=== PATIENT | male | born 1995 | race African-American/Black ===

== ENCOUNTER 2019-04-18 18:02 | Emergency (ER) | payer OTHER, SELFPAY ==
[2019-04-18] MEDS ORDERED: LIDOCAINE 2% MPF 5 ML VIAL ONE (18:31)
[2019-04-18] MEDS ORDERED: SMZ./TMP. 800/160 MG TABLET ONE (18:32)
[2019-04-18] MEDS ORDERED: BUPIVACAINE 0.25% PF 10 ML VIAL ONE (18:33)
--- NOTE | 2019-04-18 19:54 | EDPHYS ---
Physician Documentation [facility] Name: Kan Berkowitz Age: 23 yrs Sex: Male : 1995 Arrival Date: 04/18/2019 Time: 18:05 Bed 8 Private MD: ED Physician Everett Pulido HPI: 04/18 18:50 This 23 yrs old Black Male presents to ER via Ambulatory with complaints of Infected kb finger. 18:50 the patient presents with a swollen area of the dorsal aspect of distal phalanx of left kb ring finger. Description: erythematous, swollen, warm. Onset: The symptoms/episode began/occurred 1 week(s) ago. Possible cause(s): unknown. Associated signs and symptoms: Pertinent positives: drainage, erythema, swelling. Modifying factors: the symptoms are alleviated by nothing, the symptoms are aggravated by pressure, squeezing the lesion and expressing the contents, touching. Severity of symptoms: At their worst the symptoms were moderate, in the emergency department the symptoms are unchanged. The patient has not experienced similar symptoms in the past. The patient has not recently seen a physician. Historical: - Allergies: 18:19 No Known Allergies; hb - Home Meds: 18:19 None [Active]; hb - PMHx: 18:19 None; hb - PSHx: 18:19 Wrist - Right; hb - Immunization history:: Adult Immunizations up to date. - Social history:: Smoking status: Patient uses tobacco products, smokes one-half pack cigarettes per day. - Ebola Screening: : No symptoms or risks identified at this time. ROS: 18:49 Constitutional: Negative for fever, chills, and weight loss, Cardiovascular: Negative kb for chest pain, palpitations, and edema, Respiratory: Negative for shortness of breath, cough, wheezing, and pleuritic chest pain, Abdomen/GI: Negative for abdominal pain, nausea, vomiting, diarrhea, and constipation, MS/Extremity: Negative for injury and deformity, Neuro: Negative for headache, weakness, numbness, tingling, and seizure. 18:49 Skin: Positive for abscess, erythema, swelling, of the dorsal aspect of distal phalanx of left ring finger. Exam: 18:49 Constitutional: This is a well developed, well nourished patient who is awake, alert, kb and in no acute distress. Head/Face: Normocephalic, atraumatic. Neck: Trachea midline, no thyromegaly or masses palpated, and no cervical lymphadenopathy. Supple, full range of motion without nuchal rigidity, or vertebral point tenderness. No Meningismus. Chest/axilla: Normal chest wall appearance and motion. Nontender with no deformity. No lesions are appreciated. Cardiovascular: Regular rate and rhythm with a normal S1 and S2. No gallops, murmurs, or rubs. Normal PMI, no JVD. No pulse deficits. Respiratory: Lungs have equal breath sounds bilaterally, clear to auscultation and percussion. No rales, rhonchi or wheezes noted. No increased work of breathing, no retractions or nasal flaring. Abdomen/GI: Soft, non-tender, with normal bowel sounds. No distension or tympany. No guarding or rebound. No evidence of tenderness throughout. MS/ Extremity: Pulses equal, no cyanosis. Neurovascular intact. Full, normal range of motion. Neuro: Awake and alert, GCS 15, oriented to person, place, time, and situation. Cranial nerves II-XII grossly intact. Motor strength 5/5 in all extremities. Sensory grossly intact. Cerebellar exam normal. Normal gait. 18:49 Skin: abscess, that is small, of the dorsal aspect of distal phalanx of left ring finger, with fluctuance. Vital Signs: 18:19 BP 146 / 82; Pulse 77; Resp 16; Temp 98.5; Pulse Ox 100% on R/A; Weight 149.69 kg; hb Height 6 ft. (182.88 cm); Pain 8/10; 18:19 Body Mass Index 44.76 (149.69 kg, 182.88 cm) hb Procedures: 18:46 Nerve block: (digital) of dorsal aspect of proximal phalanx of left ring finger kb Medication: Lidocaine 1% without epinephrine Marcaine 0.5%, Amount: 6 mls were injected, Effect: the patient has resolution of the pain, Set up for procedure. Performed by Mery MCNAMARA Patient tolerated well. MDM: 18:24 Patient medically screened. kb 18:46 Data reviewed: vital signs, nurses notes. Data interpreted: Pulse oximetry: on room air kb is 100 %. Interpretation: normal. 19:52 Counseling: I had a detailed discussion with the patient and/or guardian regarding: the kb historical points, exam findings, and any diagnostic results supporting the discharge/admit diagnosis, the need for outpatient follow up, a family practitioner, to return to the emergency department if symptoms worsen or persist or if there are any questions or concerns that arise at home. Administered Medications: 18:34 Drug: Bactrim (160 mg-800 mg (DS) 1 tablet Route: PO; jl7 18:46 Follow up: Response: No adverse reaction jl7 18:45 Drug: Marcaine (0.5 %) 1 vials {Note: administered by TERRI ordonez.} Volume: 10 ml; jl7 Route: Infiltration; 18:46 Follow up: Response: No adverse reaction jl7 18:46 Drug: Lidocaine (1 %) 1 vials {Note: administered by TERRI Ordonez.} Volume: 5 ml; Route: jl7 Infiltration; 18:47 Follow up: Response: No adverse reaction jl7 Disposition: 04/19 06:37 Co-signature as Attending Physician, Everett Pulido MD I agree with the assessment and real plan of care. Disposition: 04/18/19 19:53 Discharged to Home. Impression: Cutaneous abscess of left hand - paronychia, left ring finger. - Condition is Stable. - Discharge Instructions: Paronychia, [id number]. - Prescriptions for Bactrim DS 800- 160 mg Oral Tablet - take 1 tablet by ORAL route every 12 hours for 10 days; 20 tablet. - Medication Reconciliation Form, Thank You Letter, Antibiotic Education, Prescription Opioid Use, Work release form form. - Follow up: Emergency Department; When: As needed; Reason: Worsening of condition. Follow up: Private Physician; When: 2 - 3 days; Reason: Recheck today's complaints, Continuance of care, Re-evaluation by your physician. Signatures: Mery Sanchez, ELECTRONIC SECURITY TECHNICIAN-C ELECTRONIC SECURITY TECHNICIAN-Everett Morse MD MD cha Pena, Laura RN RN lp1 Eloise Fam, El Laughlin RN, RN RN jl7 Corrections: (The following items were deleted from the chart) 04/18 18:49 18:46 Nerve block: (digital) of dorsal aspect of proximal phalanx of left middle finger kb Medication: Lidocaine 1% without epinephrine Marcaine 0.5%, Amount: 6 mls were injected, Effect: the patient has resolution of the pain, Set up for procedure. Performed by Mery MCNAMARA Patient tolerated well. kb 20:10 19:53 04/18/2019 19:53 Discharged to Home. Impression: Cutaneous abscess of left hand - lp1 paronychia, left ring finger. Condition is Stable. Forms are Medication Reconciliation Form, Thank You Letter, Antibiotic Education, Prescription Opioid Use. Follow up: Emergency Department; When: As needed; Reason: Worsening of condition. Follow up: Private Physician; When: 2 - 3 days; Reason: Recheck today's complaints, Continuance of care, Re-evaluation by your physician. kb
--- NOTE | 2019-04-18 19:54 | ER ---
Nurse's Notes [facility] Name: Kan Berkowitz Age: 23 yrs Sex: Male : 1995 Arrival Date: 04/18/2019 Time: 18:05 Bed 8 Private MD: Diagnosis: Cutaneous abscess of left hand-paronychia, left ring finger Presentation: 04/18 18:18 Presenting complaint: Infected left ring finger cuticle x 1 week. Transition of care: hb patient was not received from another setting of care. Onset of symptoms was April 12, 2019. Risk Assessment: Do you want to hurt yourself or someone else? Patient reports no desire to harm self or others. Initial Sepsis Screen: Does the patient meet any 2 criteria? No. Patient's initial sepsis screen is negative. Does the patient have a suspected source of infection? No. Patient's initial sepsis screen is negative. Care prior to arrival: None. 18:18 Method Of Arrival: Ambulatory hb 18:18 Acuity: CHRISTOPHER 4 hb Historical: - Allergies: 18:19 No Known Allergies; hb - Home Meds: 18:19 None [Active]; hb - PMHx: 18:19 None; hb - PSHx: 18:19 Wrist - Right; hb - Immunization history:: Adult Immunizations up to date. - Social history:: Smoking status: Patient uses tobacco products, smokes one-half pack cigarettes per day. - Ebola Screening: : No symptoms or risks identified at this time. Screenin:47 Abuse screen: Denies threats or abuse. Denies injuries from another. Nutritional jl7 screening: No deficits noted. Tuberculosis screening: No symptoms or risk factors identified. Fall Risk None identified. Assessment: 18:47 General: Appears in no apparent distress. uncomfortable, Behavior is cooperative, jl7 anxious. Pain: Complains of pain in dorsal aspect of distal phalanx of left ring finger Pain does not radiate. Pain currently is 6 out of 10 on a pain scale. Neuro: Level of Consciousness is awake, alert, obeys commands, Oriented to person, place, time, situation. Cardiovascular: Patient's skin is warm and dry. Respiratory: Airway is patent Respiratory effort is even, unlabored, Respiratory pattern is regular, symmetrical. Derm: Skin is pink, warm \\T\\ dry. Musculoskeletal: Reports pain in dorsal aspect of distal phalanx of left ring finger. 19:18 Reassessment: Patient states "My finger still hurts, I don't think the medicine is lp1 helping yet"; Bruising, swelling noted to distal left ring finger; Provider notified of patient with continued pain. Vital Signs: 18:19 BP 146 / 82; Pulse 77; Resp 16; Temp 98.5; Pulse Ox 100% on R/A; Weight 149.69 kg; hb Height 6 ft. (182.88 cm); Pain 8/10; 18:19 Body Mass Index 44.76 (149.69 kg, 182.88 cm) hb ED Course: 18:05 Patient arrived in ED. mr 18:18 Triage completed. hb 18:20 Arm band placed on. hb 18:23 [facility]C [facility] kb 18:23 Everett Pulido MD is Attending Physician. kb 18:27 El Schmitt RN is Primary Nurse. jl7 18:47 Patient has correct armband on for positive identification. Placed in gown. Bed in low jl7 position. Call light in reach. Side rails up X 1. 19:20 Patient did not have IV access during this emergency room visit. lp1 20:09 No provider procedures requiring assistance completed. lp1 Administered Medications: 18:34 Drug: Bactrim (160 mg-800 mg (DS) 1 tablet Route: PO; jl7 18:46 Follow up: Response: No adverse reaction jl7 18:45 Drug: Marcaine (0.5 %) 1 vials {Note: administered by TERRI ordonez.} Volume: 10 ml; jl7 Route: Infiltration; 18:46 Follow up: Response: No adverse reaction jl7 18:46 Drug: Lidocaine (1 %) 1 vials {Note: administered by TERRI Ordonez.} Volume: 5 ml; Route: jl7 Infiltration; 18:47 Follow up: Response: No adverse reaction jl7 Outcome: 19:53 Discharge ordered by . kb 20:09 Discharged to home ambulatory. lp1 20:09 Condition: good 20:09 Discharge instructions given to patient, Instructed on discharge instructions, follow up and referral plans. medication usage, Demonstrated understanding of instructions, follow-up care, medications, Prescriptions given X 1. 20:10 Patient left the ED. lp1 Signatures: Mery Sanchez FNP-C LEATHER STAMPER-Joelle Mcclellan mr Bond, Naomi, RN RN lp1 Eloise Fam, RN RN hb El Schmitt RN RN jl7
[2019-04-18 20:33] VITALS: BP 114/72; TEMP 99.6; O2SAT 98
== END 2019-04-18 20:10 | disposition home or self-care (01) ==
LOC: ER 18:02
DX: L02.512 Cutaneous abscess of left hand (principal)
CPT/HCPCS: 64450; 99283

== ENCOUNTER 2021-03-21 18:03 | Emergency (ER) | payer SELFPAY ==
--- NOTE | 2021-03-21 19:35 | EDPHYS ---
Physician Documentation [facility] Name: Kan Berkowitz Age: 25 yrs Sex: Male : 1995 Arrival Date: 03/21/2021 Time: 18:04 Bed 11 Private MD: ED Physician James Zimmerman HPI: 03/21 19:26 This 25 yrs old Black Male presents to ER via Ambulatory with complaints of Ear Pain. jmm 19:26 The patient presents with pain. Onset: The symptoms/episode began/occurred gradually, 1 jmm week(s) ago. Modifying factors: The symptoms are alleviated by nothing, the symptoms are aggravated by nothing. Associated signs and symptoms: Pertinent negatives: fever. Is a 25-year-old male no chronic medical conditions presents emerged part with complaints of earache which has been ongoing for approximately 1 week. Patient states [place] Denies vomiting, cough. Historical: - Allergies: 18:46 No Known Allergies; kg - Home Meds: 18:46 None [Active]; kg - PMHx: 18:46 None; kg - PSHx: 18:46 Right wrist sx; kg - Immunization history:: Adult Immunizations not up to date, Client reports having NOT received the Covid vaccine. - Social history:: Smoking status: Patient reports the use of cigarette tobacco products, smokes one pack cigarettes per day. ROS: 19:26 Constitutional: Negative for fever, chills, and weight loss. jmm 19:26 ENT: Positive for ear pain. 19:26 All other systems are negative. Exam: 19:26 Constitutional: This is a well developed, well nourished patient who is awake, alert, jmm and in no acute distress. Head/Face: atraumatic. Eyes: EOMI, no conjunctival erythema appreciated 19:26 Neck: Trachea midline, Supple Chest/axilla: Normal chest wall appearance and motion. Cardiovascular: Regular rate and rhythm. No edema appreciated Respiratory: Normal respirations, no respiratory distress appreciated Abdomen/GI: Non distended, soft Back: Normal ROM Skin: General appearance color normal MS/ Extremity: Moves all extremities, no obvious deformities appreciated, no edema noted to the lower extremities Neuro: Awake and alert, normal gait Psych: Behavior is normal, Mood is normal, Patient is cooperative and pleasant 19:26 ENT: TM's: erythema, that is moderate, on the left. Vital Signs: 18:44 BP 148 / 94; Pulse 72; Resp 20; Temp 99.3(O); Pulse Ox 99% on R/A; Weight 136.08 kg kg (R); Height 6 ft. 0 in. (182.88 cm); Pain 7/10; 18:44 Body Mass Index 40.69 (136.08 kg, 182.88 cm) kg MDM: 19:25 Patient medically screened. [facility] 19:27 Data reviewed: vital signs, nurses notes. Counseling: I had a detailed discussion with [facility] the patient and/or guardian regarding: the historical points, exam findings, and any diagnostic results supporting the discharge/admit diagnosis, the need for outpatient follow up, to return to the emergency department if symptoms worsen or persist or if there are any questions or concerns that arise at home. ED course: . Administered Medications: 19:33 Drug: Ketorolac 30 mg Route: IM; Site: right deltoid; b 19:46 Follow up: Response: No adverse reaction z Disposition Summary: 03/21/21 19:34 Discharge Ordered Location: Home [facility] Condition: Stable [facility] Diagnosis - Acute serous otitis media, left ear [facility] Followup: [facility] - With: Private Physician - When: 2 - 3 days - Reason: Recheck today's complaints, Continuance of care, Re-evaluation by your physician Discharge Instructions: - Discharge Summary Sheet [facility] - Otitis Media, Adult [facility] Forms: - Medication Reconciliation Form [facility] - Thank You Letter [facility] - Antibiotic Education [facility] - Prescription Opioid Use [facility] Prescriptions: - Augmentin 875-125 mg Oral Tablet - take 1 tablet by ORAL route every 12 hours for 10 days; 20 tablet; Refills: 0, [facility] Product Selection Permitted Addendum: 03/23/2021 09:07 Co-signature as Attending Physician, James Zimmerman MD I agree with the assessment and [facility] plan of care. Signatures: James Zimmerman MD MD kdr Mickail, Joel, PA PA jmm Brown, Zipporah, RN RN zb Graham, Kristen, RN RN kg Corrections: (The following items were deleted from the chart) 03/21 18:47 18:46 PSHx: None; kg kg
--- NOTE | 2021-03-21 19:35 | ER ---
Nurse's Notes [facility] Name: Kan Berkowitz Age: 25 yrs Sex: Male : 1995 Arrival Date: 03/21/2021 Time: 18:04 Bed 11 Private MD: Diagnosis: Acute serous otitis media, left ear Presentation: 03/21 18:44 Chief complaint: Patient states: Left ear pain and swelling behind ear/ jaw, difficulty kg swallowing x 3 days. Coronavirus screen: Client denies travel out of the [place] in the last 14 days. Client indicates they have traveled out of the [place] in the last 14 days. At this time, unable to obtain information related to travel outside the [place] At this time, the client does not indicate any symptoms associated with coronavirus-19. Ebola Screen: Patient negative for fever greater than or equal to 101.5 degrees Fahrenheit, and additional compatible Ebola Virus Disease symptoms Patient denies exposure to infectious person. Patient denies travel to an Ebola-affected area in the 21 days before illness onset. Initial Sepsis Screen: Does the patient meet any 2 criteria? No. Patient's initial sepsis screen is negative. Does the patient have a suspected source of infection? No. Patient's initial sepsis screen is negative. Risk Assessment: Do you want to hurt yourself or someone else? Patient reports no desire to harm self or others. Onset of symptoms was March 18, 2021. 18:44 Method Of Arrival: Ambulatory kg 18:44 Acuity: CHRISTOPHER 4 kg Triage Assessment: 18:46 General: Appears in no apparent distress. Behavior is calm, cooperative, appropriate kg for age, quiet. Pain: Complains of pain in Left ear, left jaw Pain radiates to Left jaw, throat Pain currently is 7 out of 10 on a pain scale. at worst was 10 out of 10 on a pain scale. level that patient reports is acceptable is 3 out of 10 on a pain scale. Quality of pain is described as throbbing. EENT: Reports decreased hearing in left ear difficulty swallowing since 03/19 pain in left ear and left jaw when swallowing Pain is 7 out of 10 on a pain scale. Historical: - Allergies: 18:46 No Known Allergies; kg - Home Meds: 18:46 None [Active]; kg - PMHx: 18:46 None; kg - PSHx: 18:46 Right wrist sx; kg - Immunization history:: Adult Immunizations not up to date, Client reports having NOT received the Covid vaccine. - Social history:: Smoking status: Patient reports the use of cigarette tobacco products, smokes one pack cigarettes per day. Screenin:03 Abuse screen: Denies threats or abuse. Denies injuries from another. Nutritional hb screening: No deficits noted. Tuberculosis screening: No symptoms or risk factors identified. Fall Risk None identified. Assessment: 19:03 General: Appears in no apparent distress. Behavior is calm, cooperative. Pain: Pain hb currently is 7 out of 10 on a pain scale. Neuro: Level of Consciousness is awake, alert, obeys commands, Oriented to person, place, time, situation. Cardiovascular: Patient's skin is warm and dry. Respiratory: Respiratory effort is even, unlabored, Respiratory pattern is regular, symmetrical. GI: No signs and/or symptoms were reported involving the gastrointestinal system. : No signs and/or symptoms were reported regarding the genitourinary system. EENT: Reports left ear pain. Derm: Skin is pink, warm \T\ dry. Musculoskeletal: No signs and/or symptoms reported regarding the musculoskeletal system. 19:35 Reassessment: Patient appears in no apparent distress at this time. Patient and/or zb family updated on plan of care and expected duration. Pain level reassessed. Patient is alert, oriented x 3, equal unlabored respirations, skin warm/dry/pink. d/c pending completion of IM injection wait time. Vital Signs: 18:44 BP 148 / 94; Pulse 72; Resp 20; Temp 99.3(O); Pulse Ox 99% on R/A; Weight 136.08 kg kg (R); Height 6 ft. 0 in. (182.88 cm); Pain 7/10; 18:44 Body Mass Index 40.69 (136.08 kg, 182.88 cm) kg ED Course: 18:04 Patient arrived in ED. am2 18:46 Triage completed. kg 18:46 Arm band placed on left wrist. kg 18:56 Yonathan Calderon PA is PHCP. [facility] 18:56 James Zimmerman MD is Attending Physician. [facility] 19:03 Patient has correct armband on for positive identification. Call light in reach. hb 19:26 Teresa Booker, RN is Primary Nurse. zb 19:39 No provider procedures requiring assistance completed. Patient did not have IV access zb during this emergency room visit. Administered Medications: 19:33 Drug: Ketorolac 30 mg Route: IM; Site: right deltoid; zb 19:46 Follow up: Response: No adverse reaction zb Outcome: 19:34 Discharge ordered by . kd 19:39 Discharged to home ambulatory. zb 19:39 Condition: stable 19:39 Discharge instructions given to patient, Instructed on discharge instructions, follow up and referral plans. medication usage, Demonstrated understanding of instructions, follow-up care, medications, Prescriptions given X 1. 19:48 Patient left the ED. zb Signatures: Yonathan Calderon PA PA jmm Baxter, Heather, RN RN Yuen Nicole 2 Teresa Booker RN RN zb Graham, Kristen, RN RN kg Corrections: (The following items were deleted from the chart) 18:47 18:46 PSHx: None; kg kg
[2021-03-21] MEDS ORDERED: KETOROLAC 30 MG/ML INJ ONE (19:53)
[2021-03-21 20:09] VITALS: BP 148/94; TEMP 99.3; O2SAT 99
== END 2021-03-21 19:48 | disposition home or self-care (01) ==
LOC: ER 18:03
DX: H65.02 Acute serous otitis media, left ear (principal); F17.210 Nicotine dependence, cigarettes, uncomplicated
CPT/HCPCS: 96372; 99283

== ENCOUNTER 2022-04-12 13:54 | Emergency (ER) | payer SELFPAY ==
[2022-04-12] MEDS ORDERED: PROMETHAZINE INJ 25 MG/ML AMP ONE (14:17)
[2022-04-12] MEDS ORDERED: NA CHLORIDE 0.9% 1,000 ML ONE (14:18)
[2022-04-12] MEDS ORDERED: HYDROMORPHONE HCL 0.5 MG/0.5 ML INJ ONE (14:18)
[2022-04-12] MEDS ORDERED: KETOROLAC 30 MG/ML INJ ONE (14:18)
[2022-04-12] MEDS ORDERED: MAGNESIUM SULFATE 1 gm IVPB 1 GM/100 ML BAG IV ONE (14:18)
--- NOTE | 2022-04-12 15:15 | RAD REPORT ---
EXAM DESCRIPTION: CT - Stone Protocol - 04/12/2022 3:01 pm CLINICAL HISTORY: Flank pain. severe sudden pain COMPARISON: No comparisons TECHNIQUE: Axial images were obtained without oral or IV contrast. Lack of contrast limits solid org an and vascular assessment. The [id number] spans the entirety of the system partially obscuring uppermost abdomen and lung bases. Coronal reformatted images were obtained and reviewed. All CT scans are performed using dose optimization technique as appropriate and may include automated exposure control or mA/KV adjustment according to patient size. FINDINGS: The lower lung martinez are clear. Imaged portions of the liver and spleen show no suspicious findings on non-contrast imaging. The panc reas and adrenal glands are normal. No pathologic lymphadenopathy in the abdomen or pelvis. 3 mm stone right UVJ is present resulting in mild right hydronephrosis and hydroureter. No bowel obstruction, free air, free fluid or abscess. Normal appendix noted. No significant bony abnormality. IMPRESSION: 3 mm stone right UVJ resulting in mild right hydronephrosis and hydroureter.
[2022-04-12 15:28] LABS: Urine Blood 2+ (Negative); Urine Glucose Negative (Negative); Urine Protein 2+ (Negative); Urine Specific Gravity >=1.030 (1.005-1.030); Urine pH 5.5 (5.0-7.0)
--- NOTE | 2022-04-12 15:29 | EDPHYS ---
Physician Documentation [facility] Name: Kan Berkowitz Age: 26 yrs Sex: Male : 1995 Arrival Date: 04/12/2022 Time: 13:55 Bed 14 Private MD: ED Physician Everett Pulido HPI: 04/12 14:09 This 26 yrs old Black Male presents to ER via Ambulatory with complaints of Flank Pain. snw 14:09 The patient complains of pain in the right lower quadrant. The pain does not radiate. snw Onset: The symptoms/episode began/occurred suddenly. Modifying factors: The symptoms are alleviated by nothing. the symptoms are aggravated by nothing. Associated signs and symptoms: Pertinent positives: severe pain. Severity of pain: At its worst the pain was severe incapacitating. The patient has not experienced similar symptoms in the past. The patient has not recently seen a physician. Historical: - Allergies: 14:55 No Known Allergies; ph - PSHx: 14:55 Right wrist sx; ph - Immunization history:: Adult Immunizations unknown. - Social history:: Smoking status: Patient reports the use of cigarette tobacco products, smokes one-half pack cigarettes per day. ROS: 14:09 Constitutional: Negative for fever, chills, and weight loss, Eyes: Negative for injury, snw pain, redness, and discharge, ENT: Negative for injury, pain, and discharge, Neck: Negative for injury, pain, and swelling, Cardiovascular: Negative for chest pain, palpitations, and edema, Respiratory: Negative for shortness of breath, cough, wheezing, and pleuritic chest pain, Back: Negative for injury and pain, : Negative for injury, bleeding, discharge, and swelling, MS/Extremity: Negative for injury and deformity, Skin: Negative for injury, rash, and discoloration, Neuro: Negative for headache, weakness, numbness, tingling, and seizure, Psych: Negative for depression, anxiety, suicide ideation, homicidal ideation, and hallucinations. 14:09 Abdomen/GI: Positive for abdominal pain, of the right lower quadrant. Exam: 14:08 Head/Face: Normocephalic, atraumatic. Eyes: Pupils equal round and reactive to light, snw extra-ocular motions intact. Lids and lashes normal. Conjunctiva and sclera are non-icteric and not injected. Cornea within normal limits. Periorbital areas with no swelling, redness, or edema. ENT: Nares patent. No nasal discharge, no septal abnormalities noted. Tympanic membranes are normal and external auditory canals are clear. Oropharynx with no redness, swelling, or masses, exudates, or evidence of obstruction, uvula midline. Mucous membranes moist. Neck: Trachea midline, no thyromegaly or masses palpated, and no cervical lymphadenopathy. Supple, full range of motion without nuchal rigidity, or vertebral point tenderness. No Meningismus. Chest/axilla: Normal chest wall appearance and motion. Nontender with no deformity. No lesions are appreciated. Cardiovascular: Regular rate and rhythm with a normal S1 and S2. No gallops, murmurs, or rubs. Normal PMI, no JVD. No pulse deficits. Respiratory: Lungs have equal breath sounds bilaterally, clear to auscultation and percussion. No rales, rhonchi or wheezes noted. No increased work of breathing, no retractions or nasal flaring. Back: No spinal tenderness. No costovertebral tenderness. Full range of motion. Skin: Warm, dry with normal turgor. Normal color with no rashes, no lesions, and no evidence of cellulitis. MS/ Extremity: Pulses equal, no cyanosis. Neurovascular intact. Full, normal range of motion. Neuro: Awake and alert, GCS 15, oriented to person, place, time, and situation. Cranial nerves II-XII grossly intact. Motor strength 5/5 in all extremities. Sensory grossly intact. Cerebellar exam normal. Normal gait. Psych: Awake, alert, with orientation to person, place and time. Behavior, mood, and affect are within normal limits. 14:08 Constitutional: The patient appears alert, anxious, restless, uncomfortable. 14:08 Constitutional: The patient appears diaphoretic. 14:08 Abdomen/GI: Inspection: abdomen appears normal, Bowel sounds: normal, Palpation: severe abdominal tenderness, in the right lower quadrant. Vital Signs: 14:02 Pulse 77; Resp 24; Pulse Ox 100% on R/A; Weight 145.15 kg; Height 6 ft. 0 in. (182.88 ph cm); Pain 10/10; 14:05 BP 150 / 95; hb 15:29 BP 132 / 87; Pulse 68; Resp 18; Temp 97.4(TE); Pulse Ox 99% on R/A; ph 14:02 Body Mass Index 43.40 (145.15 kg, 182.88 cm) ph MDM: 14:07 Patient medically screened. real 16:32 Data reviewed: vital signs, nurses notes. Data interpreted: Pulse oximetry: on room air snw is 99 %. Interpretation: normal. Counseling: I had a detailed discussion with the patient and/or guardian regarding: the historical points, exam findings, and any diagnostic results supporting the discharge/admit diagnosis, the presence of at least one elevated blood pressure reading (>120/80) during this emergency department visit, the need for outpatient follow up, for definitive care. Response to treatment: the patient's symptoms have markedly improved after treatment. Special discussion: Based on the patient's Hx, exam, and Dx evaluation, there is no indication for emergent surgery or inpatient Tx. It is understood by the patient/guardian that if the Sx's persist or worsen they need to return immediately for re-evaluation. Based on the history and exam findings, there is no indication for further emergent testing or inpatient evaluation. I discussed with the patient/guardian the need to see the primary care provider for further evaluation of the symptoms. 04/12 14:05 Order name: Urine Culture [facility] 04/12 14:05 Order name: Urine Microscopic Only; Complete Time: 16:09 snw 04/12 14:08 Order name: Stone Protocol CT; Complete Time: 15:20 snw 04/12 15:29 Order name: Urine Dipstick-Ancillary; Complete Time: 15:30 EDMS 04/12 14:05 Order name: Urine Dipstick-Ancillary (obtain specimen); Complete Time: 15:32 snw 04/12 15:22 Order name: VS; Complete Time: 15:29 snw Administered Medications: 14:15 Drug: NS 0.9% 1000 ml Route: IV; Rate: 1 bolus; Site: right antecubital; ph 16:45 Follow up: Response: No adverse reaction; IV Status: Completed infusion; IV Intake: ph 1000ml 14:15 Drug: Dilaudid (HYDROmorphone) 0.5 mg Route: IVP; Site: right antecubital; ph 15:30 Follow up: Response: No adverse reaction; Pain is decreased; RASS: Alert and Calm (0) ph 14:16 Drug: Ketorolac 30 mg Route: IVP; Site: right antecubital; ph 15:30 Follow up: Response: No adverse reaction ph 14:18 Drug: Magnesium Sulfate 1 grams Route: IVPB; Infused Over: 1 hrs; Site: right ph antecubital; 15:30 Follow up: Response: No adverse reaction; IV Status: Completed infusion ph 15:31 Not Given (Other Intervention Used): Phenergan (promethazine) 25 mg IM once ph 15:55 Drug: Flomax (tamsulosin) 0.4 mg Route: PO; ph 16:44 Follow up: Response: No adverse reaction ph Disposition Summary: 04/12/22 15:28 Discharge Ordered Location: Home snw Condition: Stable snw Diagnosis - Hydroureter snw - Hydronephrosis with renal and ureteral calculous obstruction snw Followup: snw - With: Emergency Department - When: As needed - Reason: Worsening of condition Followup: snw - With: Private Physician - When: 2 - 3 days - Reason: Recheck today's complaints, Continuance of care, Re-evaluation by your physician Discharge Instructions: - Discharge Summary Sheet snw - Kidney Stones snw - Hydronephrosis snw - Dietary Guidelines to Help Prevent Kidney Stones snw - Rehydration, Adult snw Forms: - Medication Reconciliation Form snw - Thank You Letter snw - Antibiotic Education snw - Prescription Opioid Use snw - Work release form snw Prescriptions: - magnesium oxide - take 400 milligram by ORAL route At bedtime; 30 tablet; Refills: 0, Product snw Selection Permitted - Diclofenac Sodium 75 mg Oral Tablet Sustained Release - take 1 tablet by ORAL route 2 times per day; 30 tablet; Refills: 0, Product snw Selection Permitted - promethazine 25 mg Oral Tablet - take 1 tablet by ORAL route every 6 hours As needed; 20 tablet; Refills: 0, snw Product Selection Permitted Signatures: Dispatcher [employer] Everett Quintana MD MD cha Waters, Shelly, CHIEF NURSING OFFICER-C CHIEF NURSING OFFICER-Latricew Louisa Covington, RN RN ph
--- NOTE | 2022-04-12 15:29 | ER ---
Nurse's Notes [facility] Name: Kan Berkowitz Age: 26 yrs Sex: Male : 1995 Arrival Date: 04/12/2022 Time: 13:55 Bed 14 Private MD: Diagnosis: Hydroureter;Hydronephrosis with renal and ureteral calculous obstruction Presentation: 04/12 14:02 Chief complaint: Patient states: R flank/abdominal pain that started today, pt noted to ph be diaphoretic, pacing. Coronavirus screen: Vaccine status: Patient reports being unvaccinated. Ebola Screen: No symptoms or risks identified at this time. 14:02 Method Of Arrival: Ambulatory ph 14:54 Initial Sepsis Screen: Does the patient meet any 2 criteria? No. Patient's initial ph sepsis screen is negative. Does the patient have a suspected source of infection? No. Patient's initial sepsis screen is negative. Risk Assessment: Do you want to hurt yourself or someone else? Patient reports no desire to harm self or others. Onset of symptoms was April 12, 2022. 14:54 Acuity: CHRISTOPHER 3 ph Triage Assessment: 14:05 General: Appears in no apparent distress. uncomfortable, Behavior is cooperative, ph restless. Pain: Complains of pain in right lower quadrant Quality of pain is described as radiating, sharp, Pain began this morning. Neuro: Yates Agitation-Sedation Scale (RASS): +1 Restless Level of Consciousness is awake, alert, obeys commands, Oriented to person, place, time, situation. Cardiovascular: Capillary refill < 3 seconds in bilateral fingers Patient's skin is warm and dry. Respiratory: Airway is patent Respiratory effort is even, unlabored. : Reports pain in right lower quadrant(s). Derm: Skin is clammy, diaphoretic, Skin is normal. Musculoskeletal: Circulation, motion, and sensation intact. Range of motion: intact in all extremities. Historical: - Allergies: 14:55 No Known Allergies; ph - PSHx: 14:55 Right wrist sx; ph - Immunization history:: Adult Immunizations unknown. - Social history:: Smoking status: Patient reports the use of cigarette tobacco products, smokes one-half pack cigarettes per day. Screenin:53 Abuse screen: Denies threats or abuse. Denies injuries from another. Nutritional ph screening: No deficits noted. Tuberculosis screening: No symptoms or risk factors identified. Fall Risk None identified. Assessment: 14:52 Reassessment: Pt states that pain has improved after IV medications. General: SEE ph TRIAGE ASSESSMENT. 15:29 Reassessment: Patient appears in no apparent distress at this time. Patient and/or ph family updated on plan of care and expected duration. Pain level reassessed. Patient is alert, oriented x 3, equal unlabored respirations, skin warm/dry/pink. 15:56 Reassessment: Patient appears in no apparent distress at this time. Patient and/or ph family updated on plan of care and expected duration. Pain level reassessed. Patient is alert, oriented x 3, equal unlabored respirations, skin warm/dry/pink. D/C pending completion of IV fluids Patient states feeling better. Vital Signs: 14:02 Pulse 77; Resp 24; Pulse Ox 100% on R/A; Weight 145.15 kg; Height 6 ft. 0 in. (182.88 ph cm); Pain 10/10; 14:05 BP 150 / 95; hb 15:29 BP 132 / 87; Pulse 68; Resp 18; Temp 97.4(TE); Pulse Ox 99% on R/A; ph 14:02 Body Mass Index 43.40 (145.15 kg, 182.88 cm) ph ED Course: 13:55 Patient arrived in ED. rg4 13:56 Argelia Bernstein FNP-C [facility]. snw 13:56 Everett Pulido MD is Attending Physician. snw 14:02 Louisa Covington, MATHEW is Primary Nurse. ph 14:10 Inserted saline lock: 22 gauge in right antecubital area, using aseptic technique. ph Blood collected. 14:55 Triage completed. ph 14:55 Arm band placed on Patient placed in an exam room. ph 14:55 Patient has correct armband on for positive identification. Bed in low position. Call ph light in reach. Side rails up X 1. Pulse ox on. NIBP on. 15:[address] In Process Unspecified. EDMS 15:29 No provider procedures requiring assistance completed. ph 16:45 IV discontinued, intact, bleeding controlled, No redness/swelling at site. Pressure ph dressing applied. Administered Medications: 14:15 Drug: NS 0.9% 1000 ml Route: IV; Rate: 1 bolus; Site: right antecubital; ph 16:45 Follow up: Response: No adverse reaction; IV Status: Completed infusion; IV Intake: ph 1000ml 14:15 Drug: Dilaudid (HYDROmorphone) 0.5 mg Route: IVP; Site: right antecubital; ph 15:30 Follow up: Response: No adverse reaction; Pain is decreased; RASS: Alert and Calm (0) ph 14:16 Drug: Ketorolac 30 mg Route: IVP; Site: right antecubital; ph 15:30 Follow up: Response: No adverse reaction ph 14:18 Drug: Magnesium Sulfate 1 grams Route: IVPB; Infused Over: 1 hrs; Site: right ph antecubital; 15:30 Follow up: Response: No adverse reaction; IV Status: Completed infusion ph 15:31 Not Given (Other Intervention Used): Phenergan (promethazine) 25 mg IM once ph 15:55 Drug: Flomax (tamsulosin) 0.4 mg Route: PO; ph 16:44 Follow up: Response: No adverse reaction ph Medication: 14:55 VIS not applicable for this client. ph Intake: 16:45 IV: 1000ml; Total: 1000ml. ph Outcome: 15:28 Discharge ordered by . snw 16:45 Discharged to home ambulatory, with significant other. ph 16:45 Condition: good 16:45 Discharge instructions given to patient, Instructed on discharge instructions, follow up and referral plans. medication usage, Demonstrated understanding of instructions, follow-up care, medications, Prescriptions given X 3. 16:45 Patient left the ED. ph Signatures: Dispatcher [employer] EDMS Argelia Bernstein, ALEC-Siobhan BOWSTRING MAKER-Latricew Louisa Covington, RN RN Eloise Fam, MATHEW RN Ximena Charles rg4
[2022-04-12] MEDS ORDERED: TAMSULOSIN 0.4 MG SR CAP ONE (15:50)
[2022-04-12 15:52] LABS: Urine Mucus 4+ /HPF (None Seen); Urine RBC >50 /HPF (None Seen)
[2022-04-12 17:28] VITALS: BP 132/87; TEMP 97.4; O2SAT 99
== END 2022-04-12 16:45 | disposition home or self-care (01) ==
LOC: ER 13:54
DX: N13.2 Hydronephrosis with renal and ureteral calculous obstruction (principal); N13.4 Hydroureter; F17.210 Nicotine dependence, cigarettes, uncomplicated
CPT/HCPCS: 74176; 76377; 81003; 81015; 87086; 87088; 96361; 96365; 96375; 99284; J1170; J2550; J3475; J7030

== ENCOUNTER 2023-01-24 15:02 | Emergency (ER) | payer SELFPAY ==
--- OUTSIDE RECORDS SUMMARY | 2023-01-24 15:05 | XMS REPORT | Continuity of Care Document ---
:1995 Author Organization [facility] t Address [address] [place] [address] Care Team Providers Name Role Phone PCP, PATIENT DOES NOT HAVE A Primary Care Physician Unavaila ble YANELY CHURCH Attending Clinician Unavailable Yanely Church MD Attending Clinician NORMAN ROMERO Admitting Clinician Unavailable Problems Condition Condition Condition Status Onset Resolution Last Treating Co mments Source Name Details Category Date Date Treatment Clinician Date Morbid Morbid Disease Active [facility] obesity obesity 3-01 ity of [place] mass [place] mass index 00 [place] dical of Branch 40.0-49.9 40.0-49.9 Allergies, Adverse Reactions, Alerts Allergy Allergy Status Severity Reaction(s) Onset Inactive Treating Comm ents Source Name Type Date Date Clinician NO KNOWN Drug Active Univers ALLERGIE Class ity of S [facility] Social History Social Habit Start Date Stop Date Quantity Comments Source History of Light tobacco University of tobacco use smoker [facility] Alcohol intake 2018-11-22 2018-11-22 Current drinker Unive rsity of 00:00:00 00:00:00 of alcohol [facility] [place] Tobacco use and 2018-08-30 2018-08-30 Smokeless tobacco Un iversity of exposure 00:00:00 00:00:00 non-user [facility] Sex Ass[birth year] At [birth year] Universit y of 00:00:00 00:00:00 [facility] Smoking Status Start Date Stop Date Source Light tobacco smoker 2018-08-30 00:00:00 [facility] [place] [facility] Medications Ordered Filled Start Stop Current Ordering Indication Dosage Frequency Signature Comments Components Source Medication Medication Date Date Medication? Clinician (SIG) Name Name diatrizoate 2022- No [id number] 60mL 60 mL, Univers filippo-diatriz 01-19 Oral, ity of oat sod 19:45: 19:45 ONCE, 1 [place] (GASTROGRAF 00 :00 dose, On Medi amada [place]) 66-10 % [facility] oral 01/19/23 at solution 60 1445, mL Routine ondansetron 2022- No 4mg 4 mg, Slow Univers (ZOFRAN 01-19 IV Push, ity of (PF)) 18:45: 18:14 ONCE, 1 [place] injection 4 00 :00 dose, On Medi amada mg [facility] 01/19/23 at 1345, MP ketorolac 2022- No 30mg 30 mg, Unive rs (TORADOL) 01-19 Slow IV ity of injection 18:45: 18:14 Push, [place] 30 mg 00 :00 ONCE, 1 Medical dose, On Branch e 01/19/23 at 1345, MP NaCl 0.9% 2022- No 1000mL at 999 Uni vers (NS) bolus 01-1920 mL/hr, ity of infusion 18:45: 19:13 1,000 mL, Gerald as 1,000 mL 00 :00 IV Medical Infusion, Branch ONCE, 1 dose, On e 01/19/23 at 1345, STAT tamsulosin Yes [id number] .4mg Take 1 U nivers 0.4 mg 24 6-20 capsule by ity of hr capsule 00:00: mouth at Gerald as 00 bedtime. Medical Branch ketorolac Yes [id number] 10mg Take 1 Un cullen 10 mg 6-20 tablet by ity of tablet 00:00: mouth [place] 00 every 8 Medical (eight) Branch hours. amoxicillin Yes [id number] 875mg Take 1 Univers 875 mg 4-15 tablet by ity of tablet 00:00: mouth 2 [place] 00 (two) Medical times Branch daily. fluticasone Yes [id number] 1{spray Use 1 Univers 50 4-15 } [place] in ity of mcg/actuati 00:00: each [place] on nasal 00 nostril 2 Medica l spray (two) Branch times daily. HYDROcodone 2019-0 Yes [id number] 1{tbl} Take 1-2 Univers -acetaminop 3-01 tablets by it y of hen 5-325 00:00: mouth [place] mg tablet 00 every 6 Medical (six) Branch hours as needed for Pain (scale 7-10). ibuprofen 2017- Yes 800mg Take 1 [facility] rs 800 mg 2-30 tablet by ity of tablet 00:00: mouth 3 [place] 00 (three) Medical times Branch daily with meals. Vital Signs Vital Name Observation Time Observation Value Comments Source Systolic blood 2023-01-19 22:21:51 130 mm[Hg] [facility] Diastolic blood 2023-01-19 22:21:51 70 mm[Hg] [facility] Heart rate 2023-01-19 22:21:51 65 /min [facility] Body temperature 2023-01-19 22:21:51 36.56 Carrie [facility] Respiratory rate 2023-01-19 22:21:51 18 /min [facility] Oxygen saturation in 2023-01-19 22:21:51 100 /min [facility] Arterial blood by [facility] Pulse oximetry Branch Body weight 2023-01-19 17:11:00 144.244 kg [facility] BMI 2023-01-19 17:11:00 42.84 kg/m2 [facility] Procedures Procedure Date / Time Performed Performing Clinician Sourc e CT ABDOMEN PELVIS WO 2023-01-19 21:12:30 Ivon Reich [facility] CONTRAST [place] COMP. METABOLIC PANEL 2023-01-19 19:21:00 Yanely Church [facility] ([id number]) [facility] CBC WITH DIFF 2023-01-19 19:07:00 Yanely Church [facility] CT ABDOMEN PELVIS WO 2023-01-19 18:08:15 Yanely Church [facility] CONTRAST [facility] LIPASE 2023-01-19 18:01:00 Yanely Church [facility] URINALYSIS 2023-01-19 18:01:00 Yanely Church [place] [facility] CONSENT/REFUSAL FOR 2023-01-19 16:50:18 [facility], [facility] Name Medical Branch TREATMENT Encounters Start End Encounter Admission Attending Care Care Encounter Source Date/Time Date/Time Type Type Clinicians Facility Department ID 2023-01-19 2023-01-19 Emergency X [facility] ERT [id number] Univers 12:12:00 17:25:[address] [facility] 2023-01-19 2023-01-19 Emergency [facility] [id number] Univers 12:12:00 17:25:00 Yanely OSORIO [id number] i rodrigo PANCHOBANNER [facility] [id number] [facility] [id number] [place] [id number] Branch Results Test Description Test Time Test Comments Results Result Comments Source LIPASE 2023-01-19 19:06:17 Test Item Value Reference Range Interpretation Comme nts LIPASE (test code = [id number]) 43 U/L 0-220 Lab Interpretation (test code = 80844-2) Normal [facility] [place]
[2023-01-24] MEDS ORDERED: NA CHLORIDE 0.9% 1,000 ML ONE (15:57)
[2023-01-24] MEDS ORDERED: KETOROLAC 30 MG/ML INJ ONE (15:57)
[2023-01-24] MEDS ORDERED: ONDANSETRON 4 MG/2 ML VIAL ONE (15:57)
[2023-01-24 16:11] LABS: Absolute Lymphocytes (CBC) 1.4 K/uL (0.7-4.9); Hematocrit 46.6 % (39.6-49.0); Lymphocytes % 13.3 % (15.3-44.8); MCV 87.8 fL (80-100); MPV 7.1 fL (7.6-11.3); RBC Red Blood Cell Count 5.31 M/uL (4.33-5.43)
[2023-01-24 16:16] LABS: Urine Bacteria <20 /HPF (<20); Urine Bilirubin NEGATIVE (Negative); Urine Blood 1+ (Negative); Urine Clarity Clear (Clear); Urine Color Yellow (Yellow); Urine Glucose NEGATIVE (Negative); Urine Mucus 3+ /HPF (None Seen); Urine Protein TRACE (Negative); Urine Urobilinogen 1+ (Normal); Urine pH 5.5 (5.0-7.0)
[2023-01-24 16:28] LABS: Albumin 4.3 g/dL (3.4-5.0); Bilirubin Total 0.8 mg/dL (0.2-1.0); Potassium 3.6 mEq/L (3.5-5.1); Protein, Total 7.7 g/dL (6.4-8.2)
--- NOTE | 2023-01-24 16:41 | RAD REPORT ---
EXAM DESCRIPTION: CT - Stone Protocol - 01/24/2023 4:32 pm CLINICAL HISTORY: Flank pain. FLANK PAIN COMPARISON: Stone Protocol dated 04/12/2022 TECHNIQUE: Axial images were obtained without oral or IV contrast. Lack of contrast limits solid org an and vascular assessment. The [id number]-[id number]-dwvr spans the entirety of the system partially obscuring uppermost abdomen and lung bases. Coronal reformatted images were obtained and reviewed. All CT scans are performed using dose optimization technique as appropriate and may include automated exposure control or mA/KV adjustment according to patient size. FINDINGS: The lower lung martinez are clear. Imaged portions of the liver and spleen show no suspicious findings on non-contrast imaging. The panc reas and adrenal glands are normal. No pathologic lymphadenopathy in the abdomen or pelvis. 5 mm stone is present right UVJ resulting in mild right hydronephrosis. No additional stone is seen. No bowel obstruction, free air, free fluid or abscess. Normal appendix noted. No significant bony abnormality. IMPRESSION: 5 mm stone right UVJ resulting in mild right hydronephrosis.
[2023-01-24] MEDS ORDERED: HYDROMORPHONE HCL 1 MG/ML INJ ONE (17:01)
[2023-01-24] MEDS ORDERED: MAGNESIUM SULFATE 1 gm IVPB 1 GM/100 ML BAG IV ONE (17:02)
[2023-01-24] MEDS ORDERED: TAMSULOSIN 0.4 MG SR CAP ONE (17:02)
--- NOTE | 2023-01-24 17:42 | EDPHYS ---
Physician Documentation [facility] Name: Kan Berkowitz Age: 27 yrs Sex: Male : 1995 Arrival Date: 01/24/2023 Time: 15:02 Bed 15 Private MD: ED Physician Everett Pulido HPI: 01/24 15:30 This 27 yrs old Black Male presents to ER via Ambulatory with complaints of Low Back cp Pain. 15:30 The patient presents with pain that is acute, with no known mechanism of injury. The cp symptoms are located in the right flank. The pain radiates to the right abdomen. Onset: The symptoms/episode began/occurred this morning. Associated signs and symptoms: Pertinent positives: nausea, urinary frequency. Historical: - Allergies: 15:15 No Known Allergies; ll1 - PMHx: 15:15 kidney stones; ll1 - PSHx: 15:15 Right wrist sx; ll1 - Immunization history:: Client reports having NOT received the Covid vaccine. - Social history:: Smoking status: Patient reports the use of cigarette tobacco products, smokes one-half pack cigarettes per day. ROS: 15:35 Constitutional: Negative for body aches, chills, fever, poor PO intake. cp 15:35 Eyes: Negative for injury, pain, redness, and discharge. cp 15:35 ENT: Negative for drainage from ear(s), ear pain, sore throat, difficulty swallowing, difficulty handling secretions. 15:35 Cardiovascular: Negative for chest pain, edema, palpitations. 15:35 Respiratory: Negative for cough, shortness of breath, wheezing. 15:35 Abdomen/GI: Positive for abdominal pain, nausea, Negative for vomiting, diarrhea, constipation. 15:35 Back: Positive for flank pain, on the right, Negative for injury or acute deformity, decreased range of motion. 15:35 : Positive for urinary frequency. 15:35 Neuro: Negative for altered mental status, dizziness, headache, weakness. 15:35 All other systems are negative. Exam: 15:40 Constitutional: The patient appears in no acute distress, alert, awake, cp non-diaphoretic, non-toxic, well developed, well nourished, obese, uncomfortable. 15:40 Head/Face: Normocephalic, atraumatic. cp 15:40 Eyes: Periorbital structures: appear normal, Conjunctiva: normal, no exudate, no injection, Sclera: no appreciated abnormality, Lids and lashes: appear normal, bilaterally. 15:40 ENT: External ear(s): are unremarkable, Nose: is normal, Mouth: Lips: moist, Oral mucosa: pink and intact, moist, Posterior pharynx: is normal, airway is patent, no erythema, no exudate. 15:40 Chest/axilla: Inspection: normal. 15:40 Cardiovascular: Rate: tachycardic, Rhythm: regular. 15:40 Respiratory: the patient does not display signs of respiratory distress, Respirations: normal, no use of accessory muscles, no retractions, labored breathing, is not present, Breath sounds: are clear throughout, no decreased breath sounds, no stridor, no wheezing. 15:40 Abdomen/GI: Inspection: abdomen appears normal, Bowel sounds: active, all quadrants, Palpation: soft, in all quadrants, moderate abdominal tenderness, in the anterior aspect of right lateral abdomen, posterior aspect of right lateral abdomen, right upper quadrant and right lower quadrant, rebound tenderness, is not appreciated. 15:40 Back: pain, that is moderate, of the right mid back, ROM is painful, with all movement. 15:40 Neuro: Orientation: to person, place \T\ time. Mentation: is normal, Motor: moves all fours, strength is normal. Vital Signs: 15:16 BP 157 / 83; Pulse 104; Resp 18; Temp 97.7; Pulse Ox 100% ; Weight 120.2 kg; Height 6 ll1 ft. 0 in. ; Pain 10/10; 16:51 BP 148 / 69; Pulse 79; Resp 16; Pulse Ox 100% on R/A; db 17:00 BP 106 / 75; Pulse 77; Resp 16; Pulse Ox 100% on R/A; db 18:00 BP 120 / 63; Pulse 66; Resp 16; Pulse Ox 100% on R/A; db 15:16 Body Mass Index 35.94 (120.20 kg, 182.88 cm) ll1 15:16 Pain Scale: Adult ll1 MDM: 15:24 Patient medically screened. cp 16:00 Differential diagnosis: sciatica, Herniated disc UTI, kidney stone, ureter stone, cp pyelonephritis. 17:41 Data reviewed: vital signs, nurses notes, lab test result(s), radiologic studies, CT cp scan. 17:41 Consideration of Admission/Observation Escalation of care including cp admission/observation considered. I considered the following discharge prescriptions or medication management in the emergency department Medications were administered in the Emergency Department. See MAR. Counseling: I had a detailed discussion with the patient and/or guardian regarding: the historical points, exam findings, and any diagnostic results supporting the discharge/admit diagnosis, lab results, radiology results, to return to the emergency department if symptoms worsen or persist or if there are any questions or concerns that arise at home. Response to treatment: the patient's symptoms have markedly improved after treatment, and as a result, I will discharge patient. ED course: Pain markedly improved with meds. Will discharge to home for continued monitoring. 01/24 15:32 Order name: CBC with Diff; Complete Time: 16:42 01/24 16:42 Interpretation: Normal except: MPV 7.1; YUE% 74.2; LYM% 13.3. 01/24 15:32 Order name: CMP; Complete Time: 16:42 01/24 16:42 Interpretation: Normal except: NA 134; CRE 1.36; GFR 73; AST 14. 01/24 15:32 Order name: Lipase; Complete Time: 16:42 01/24 15:32 Order name: Urinalysis w/ reflexes; Complete Time: 16:42 01/24 16:43 Interpretation: Normal except: UKET 2+; UBLD 1+; UPROT TRACE; UUROB 1+; UESTR 75; UWBC cp 10-20; URBC 11-20; MUCUS 3+. 01/24 16:20 Order name: Urine Culture EDME 01/24 15:32 Order name: CT Stone Protocol; Complete Time: 16:42 01/24 16:43 Interpretation: Report reviewed. 01/24 15:32 Order name: IV Saline Lock; Complete Time: 16:12 01/24 15:32 Order name: Labs collected and sent; Complete Time: 16:12 cp Administered Medications: 16:00 Drug: NS 0.9% IV 1000 ml Route: IV; Rate: 1 bolus; Site: left antecubital; db 17:30 Follow up: Response: No adverse reaction; IV Status: Completed infusion; IV Intake: db 1000ml 16:00 Drug: Ondansetron IVP 4 mg Route: IVP; Site: left antecubital; db 18:39 Follow up: Response: No adverse reaction db 16:12 Drug: TORadol - Ketorolac IVP 15 mg Route: IVP; Site: left antecubital; db 18:39 Follow up: Response: No adverse reaction db 17:00 Drug: Flomax PO 0.4 mg Route: PO; db 18:39 Follow up: Response: No adverse reaction db 17:00 Drug: Magnesium Sulfate IVPB 1 grams Route: IVPB; Infused Over: 30 mins; Site: right db antecubital; 17:55 Follow up: IV Status: Completed infusion; IV Intake: 100ml db 17:01 Drug: HYDROmorphone IVP 1 mg Route: IVP; Site: right antecubital; db 18:38 Follow up: Response: No adverse reaction db 18:05 Drug: Rocephin IV 1 grams Route: IV; Rate: calculated rate; Site: right antecubital; db 18:38 Follow up: Response: No adverse reaction; IV Status: Completed infusion; IV Intake: 50mldb Disposition Summary: 01/24/23 17:42 Discharge Ordered Location: Home cp Problem: new cp Symptoms: have improved cp Condition: Stable cp Diagnosis - Calculus of ureter - right cp Followup: cp - With: Celso Vu MD - When: 5 - 6 days - Reason: pain continues Discharge Instructions: - Discharge Summary Sheet cp - Kidney Stones cp - Renal Colic cp Forms: - Medication Reconciliation Form cp - Thank You Letter cp - Antibiotic Education cp - Prescription Opioid Use cp Prescriptions: - Flomax 0.4 mg Oral capsule - take 1 capsule by ORAL route daily As needed; 7 capsule; Refills: 0, Product cp Selection Permitted - acetaminophen-codeine 300-30 mg Oral tablet - take 2 tablet by ORAL route every 8-10 hours as needed for pain; 16 tablet; cp Refills: 0, Product Selection Permitted - Zofran 4 mg Oral Tablet - take 1 tablet by ORAL route every 12 hours As needed; 20 tablet; Refills: 0, cp Product Selection Permitted - Cipro 500 mg Oral Tablet - take 1 tablet by ORAL route every 12 hours for 7 days; 14 tablet; Refills: 0, cp Product Selection Permitted Signatures: Dispatcher [employer] EDME Everett Dyson PA PA cp Lewis, Lynsay, RN RN ll1 Carol Foley, RN RN db
--- NOTE | 2023-01-24 17:42 | ER ---
Nurse's Notes [facility] Name: Kan Berkowitz Age: 27 yrs Sex: Male : 1995 Arrival Date: 01/24/2023 Time: 15:02 Bed 15 Private MD: Diagnosis: Calculus of ureter-right Presentation: 01/24 15:16 Chief complaint: Patient states: R flank pain for 1 day. Passed a kidney stone last ll1 Wednesday. Coronavirus screen: Vaccine status: Patient reports being unvaccinated. Client denies travel out of the [place] in the last 14 days. At this time, the client does not indicate any symptoms associated with coronavirus-19. Ebola Screen: Patient denies travel to an Ebola-affected area in the 21 days before illness onset. Initial Sepsis Screen: Does the patient meet any 2 criteria? No. Patient's initial sepsis screen is negative. Does the patient have a suspected source of infection? Yes: Dysuria/Frequency/Urgency/UTI. Risk Assessment: Do you want to hurt yourself or someone else? Patient reports no desire to harm self or others. Onset of symptoms was January 24, 2023. 15:16 Method Of Arrival: Ambulatory ll1 15:16 Acuity: CHRISTOPHER 3 ll1 Triage Assessment: 15:18 General: Appears uncomfortable, Behavior is calm, cooperative, appropriate for age. ll1 Pain: Complains of pain in R back Pain currently is 10 out of 10 on a pain scale. Quality of pain is described as aching, sharp. : Reports pain in right in lower back states he passed a kidney stone on Wednesday. Musculoskeletal: Reports pain in R back. Historical: - Allergies: 15:15 No Known Allergies; ll1 - PMHx: 15:15 kidney stones; ll1 - PSHx: 15:15 Right wrist sx; ll1 - Immunization history:: Client reports having NOT received the Covid vaccine. - Social history:: Smoking status: Patient reports the use of cigarette tobacco products, smokes one-half pack cigarettes per day. Screenin:18 [facility] ED Fall Risk Assessment (Adult) History of falling in the last 3 months, db including since admission No falls in past 3 months (0 pts) Confusion or Disorientation No (0 pts) Intoxicated or Sedated No (0 pts) Impaired Gait No (0 pts) Mobility Assist Device Used No (0 pt) Altered Elimination No (0 pt) Score/Fall Risk Level 0 - 2 = Low Risk Oriented to surroundings, Maintained a safe environment. 18:37 Abuse screen: Denies threats or abuse. Denies injuries from another. Nutritional db screening: No deficits noted. Tuberculosis screening: No symptoms or risk factors identified. Assessment: 16:12 Reassessment: Patient appears in no apparent distress at this time. Patient and/or db family updated on plan of care and expected duration. Pain level reassessed. Patient is alert, oriented x 3, equal unlabored respirations, skin warm/dry/pink. right lower back pain states started this AM. General: Appears in no apparent distress. comfortable, Behavior is calm, cooperative. Pain: Complains of pain in back Pain radiates to right to left back. Neuro: Level of Consciousness is awake, alert, obeys commands, Oriented to person, place, time, situation, Speech is normal. Respiratory: Airway is patent Respiratory effort is even, unlabored, Respiratory pattern is regular, symmetrical. 16:14 Reassessment: patient to CT. db 17:00 Reassessment: Patient appears in no apparent distress at this time. Patient and/or db family updated on plan of care and expected duration. Pain level reassessed. Patient is alert, oriented x 3, equal unlabored respirations, skin warm/dry/pink. General: Appears in no apparent distress. 18:36 Reassessment: Patient appears in no apparent distress at this time. Patient and/or db family updated on plan of care and expected duration. Pain level reassessed. Patient is alert, oriented x 3, equal unlabored respirations, skin warm/dry/pink. Patient states feeling better. Patient states symptoms have improved. Neuro: Level of Consciousness is awake, alert, obeys commands. Vital Signs: 15:16 BP 157 / 83; Pulse 104; Resp 18; Temp 97.7; Pulse Ox 100% ; Weight 120.2 kg; Height 6 ll1 ft. 0 in. ; Pain 10/10; 16:51 BP 148 / 69; Pulse 79; Resp 16; Pulse Ox 100% on R/A; db 17:00 BP 106 / 75; Pulse 77; Resp 16; Pulse Ox 100% on R/A; db 18:00 BP 120 / 63; Pulse 66; Resp 16; Pulse Ox 100% on R/A; db 15:16 Body Mass Index 35.94 (120.20 kg, 182.88 cm) ll1 15:16 Pain Scale: Adult ll1 ED Course: 15:05 Patient arrived in ED. im 15:17 Triage completed. ll1 15:19 Arm band placed on Patient placed in an exam room, on a stretcher. ll1 15:20 Carol Foley, MATHEW is Primary Nurse. db 15:24 Everett Dyson PA is PHCP. cp 15:24 Everett Pulido MD is Attending Physician. cp 16:14 Inserted saline lock: 20 gauge in right antecubital area, using aseptic technique. db 16:20 CT Stone Protocol In Process Unspecified. EDMS 17:41 Celso Vu MD is Referral Physician. cp 18:37 IV discontinued, intact, bleeding controlled, No redness/swelling at site. db 18:37 No provider procedures requiring assistance completed. db 18:38 Patient has correct armband on for positive identification. Bed in low position. Call db light in reach. Side rails up X 1. Administered Medications: 16:00 Drug: NS 0.9% IV 1000 ml Route: IV; Rate: 1 bolus; Site: left antecubital; db 17:30 Follow up: Response: No adverse reaction; IV Status: Completed infusion; IV Intake: db 1000ml 16:00 Drug: Ondansetron IVP 4 mg Route: IVP; Site: left antecubital; db 18:39 Follow up: Response: No adverse reaction db 16:12 Drug: TORadol - Ketorolac IVP 15 mg Route: IVP; Site: left antecubital; db 18:39 Follow up: Response: No adverse reaction db 17:00 Drug: Flomax PO 0.4 mg Route: PO; db 18:39 Follow up: Response: No adverse reaction db 17:00 Drug: Magnesium Sulfate IVPB 1 grams Route: IVPB; Infused Over: 30 mins; Site: right db antecubital; 17:55 Follow up: IV Status: Completed infusion; IV Intake: 100ml db 17:01 Drug: HYDROmorphone IVP 1 mg Route: IVP; Site: right antecubital; db 18:38 Follow up: Response: No adverse reaction db 18:05 Drug: Rocephin IV 1 grams Route: IV; Rate: calculated rate; Site: right antecubital; db 18:38 Follow up: Response: No adverse reaction; IV Status: Completed infusion; IV Intake: 50mldb Medication: 18:38 VIS not applicable for this client. db Intake: 17:30 IV: 1000ml; Total: 1000ml. db 17:55 IV: 100ml; Total: 1100ml. db 18:38 IV: 50ml; Total: 1150ml. db Outcome: 17:42 Discharge ordered by MD. cp 18:37 Discharged to home ambulatory. db 18:37 Discharged to home with family. 18:37 Condition: stable 18:37 Instructed on discharge instructions, follow up and referral plans. Prescriptions given X 4. 18:37 Discharge instructions given to patient. 18:39 Patient left the ED. db Signatures: Dispatcher [employer] EDMS Everett Dyson PA PA cp Lewis, Lynsay, RN RN ll1 Carol Foley RN RN db Kathe Arreaga
[2023-01-24] MEDS ORDERED: CEFTRIAXONE 1000 MG/VIAL ONE (18:14)
[2023-01-24] MEDS ORDERED: NA CHLORIDE 0.9% 50 ML ONE (18:14)
[2023-01-24 18:44] VITALS: TEMP 97.7; O2SAT 100
[2023-01-24 18:49] VITALS: BP 120/63
== END 2023-01-24 18:39 | disposition home or self-care (01) ==
LOC: ER 15:02
DX: N20.1 Calculus of ureter (principal); R10.31 Right lower quadrant pain; M54.50 Low back pain, unspecified; N20.0 Calculus of kidney; Z72.0 Tobacco use
CPT/HCPCS: 36415; 74176; 76377; 80053; 81001; 83690; 85025; 87086; 87088; 99284; J0696; J1170; J2405; J3475; J7030

== ENCOUNTER 2023-12-10 00:34 | Emergency (ER) | payer SELFPAY ==
[2023-12-10] MEDS ORDERED: ONDANSETRON 4 MG/2 ML VIAL ONE (00:48)
[2023-12-10] MEDS ORDERED: NA CHLORIDE 0.9% 1,000 ML ONE (00:49)
[2023-12-10] MEDS ORDERED: MORPHINE 4 MG/ML SYR ONE (00:49)
[2023-12-10] MEDS ORDERED: FAMOTIDINE 20 MG/2 ML VIAL IV ONE (00:49)
[2023-12-10] MEDS ORDERED: MAGNES/ALUMIN/SIMET 30ML UCUP ONE (00:49)
[2023-12-10 00:59] LABS: Absolute Lymphocytes (CBC) 1.6 K/uL (0.7-4.9); Absolute Monocytes 0.7 K/uL (0.1-1.3); Absolute Neutrophil 4.9 K/uL (1.8-8.0); Basophils % 0.5 % (0-1.3); Eosinophils % 0.4 % (0-4.4); Hemoglobin 16.2 g/dL (13.6-17.9); Lymphocytes % 22.2 % (15.3-44.8); MCH 30.1 pg (27.0-35.0); MCHC 33.7 g/dL (32.0-36.0); MCV 89.4 fL (80-100); MPV 7.1 fL (7.6-11.3); Monocytes % 9.8 % (3.3-12.3); Neutrophils % 67.1 % (41.7-73.7); Platelets 398 thou/uL (152-406); RBC Red Blood Cell Count 5.37 M/uL (4.33-5.43); Red Cell Distribution Width 13.9 % (12.1-15.2)
[2023-12-10 01:14] LABS: ALT/SGPT 21 U/L (16-61); Albumin 4.1 g/dL (3.4-5.0); Albumin/Globulin Ratio 1.2 (1.1-1.8); Alkaline Phosphatase 87 U/L (45-117); Anion Gap 8.7 mEq/L (5.0-15.0); BUN Blood Urea Nitrogen 12 mg/dL (7-18); Bicarbonate 29 mEq/L (21-32); Bilirubin Total 0.7 mg/dL (0.2-1.0); Globulin 3.5 g/dL (2.3-3.5); Glomerular Filtration Rate 103 ml/min (=/>90); Glucose Level 99 mg/dL (74-106); Lipase 94 U/L (13-75); Potassium 3.7 mEq/L (3.5-5.1); Protein, Total 7.6 g/dL (6.4-8.2); Sodium Level 135 mEq/L (136-145)
[2023-12-10 01:28] LABS: AST/SGOT < 10 U/L (15-37)
[2023-12-10 02:47] LABS: Sqamous Epithelial <5 /HPF (None Seen); Urine Bacteria None Seen /HPF (<20); Urine Bilirubin NEGATIVE (Negative); Urine Blood Negative (Negative); Urine Clarity Clear (Clear); Urine Color Light-Yellow (Yellow); Urine Culture Reflex Order NOT NEEDED; Urine Glucose NEGATIVE (Negative); Urine Ketones NEGATIVE (Negative); Urine Microscopic Reflex YN ORDER UMIC; Urine Mucus 1+ /HPF (None Seen); Urine Nitrite NEGATIVE (Negative); Urine Protein TRACE (Negative); Urine RBC <5 /HPF (None Seen); Urine Urobilinogen Normal (Normal); Urine WBC <5 /HPF (<5)
[2023-12-10 02:56] LABS: Specific Gravity 1.025 (1.005-1.030)
--- NOTE | 2023-12-10 03:02 | EDPHYS ---
Physician Documentation [facility] Name: Kan Berkowitz Age: 28 yrs Sex: Male : 1995 Arrival Date: 12/10/2023 Time: 00:34 Bed 5 Private MD: ED Physician Laith Cook HPI: 12/09 00:46 This 28 yrs old Black Male presents to ER via Unassigned with complaints of Abdominal rt Pain. 00:46 Patient presents to the ED with epigastric pain starting this morning. States that this rt did not occur after eating. Reports nausea without vomiting. Denies other acute complaints at this time. Symptoms are moderate in severity, no other aggravating or alleviating factors.. Historical: - Allergies: 00:51 No Known Allergies; pf1 - PMHx: 00:51 Kidney stones; Bipolar disorder; pf1 00:52 ADHD; pf1 - PSHx: 00:51 Right wrist sx; pf1 - Immunization history:: Adult Immunizations not up to date, Client reports having NOT received the Covid vaccine. Last tetanus immunization: > 10 years ago Flu vaccine is not up to date. - Infectious Disease History:: Denies. - Family history:: not pertinent. - Social history:: Smoking status: Patient reports the use of cigarette tobacco products, smokes one pack cigarettes per day. Patient/guardian denies using alcohol, street drugs. ROS: 00:46 Constitutional: Negative for fever, chills, and weight loss, Cardiovascular: Negative rt for chest pain, palpitations, and edema, Respiratory: Negative for shortness of breath, cough, wheezing, and pleuritic chest pain, MS/Extremity: Negative for injury and deformity, Skin: Negative for injury, rash, and discoloration, Neuro: Negative for headache, weakness, numbness, tingling, and seizure, 00:46 Abdomen/GI: Positive for abdominal pain, nausea, Exam: 00:46 Constitutional: This is a well developed, well nourished patient who is awake, alert, rt and in no acute distress. Head/Face: Normocephalic, atraumatic. Chest/axilla: Normal chest wall appearance and motion. Nontender with no deformity. No lesions are appreciated. Cardiovascular: Regular rate and rhythm with a normal S1 and S2. No gallops, murmurs, or rubs. Normal PMI, no JVD. No pulse deficits. Respiratory: Lungs have equal breath sounds bilaterally, clear to auscultation and percussion. No rales, rhonchi or wheezes noted. No increased work of breathing, no retractions or nasal flaring. Skin: Warm, dry with normal turgor. Normal color with no rashes, no lesions, and no evidence of cellulitis. MS/ Extremity: Pulses equal, no cyanosis. Neurovascular intact. Full, normal range of motion. Neuro: Awake and alert, GCS 15, oriented to person, place, time, and situation. Cranial nerves II-XII grossly intact. Motor strength 5/5 in all extremities. Sensory grossly intact. Cerebellar exam normal. Normal gait. 00:46 Abdomen/GI: Tenderness to the epigastrium, right upper, left upper quadrants, no tenderness to the lower quadrants, no guarding, rebound, distention, Vital Signs: 00:39 BP 146 / 83; Pulse 73; Resp 16; Temp 97.1; Pulse Ox 100% on R/A; Weight 99.79 kg; pf1 Height 6 ft. 0 in. ; Pain 9/10; 02:52 BP 136 / 87; Pulse 62; Resp 16 S; Temp 97.8(O); Pulse Ox 100% on R/A; lg3 00:39 Body Mass Index 29.84 (99.79 kg, 182.88 cm) pf1 00:39 Pain Scale: Adult pf1 MDM: 00:40 Patient medically screened. rt 03:06 Differential Diagnosis Gastritis, bowel obstruction, pancreatitis, cholecystitis. Data rt reviewed: vital signs, nurses notes, lab test result(s), radiologic studies. I considered the following discharge prescriptions or medication management in the emergency department Medications were administered in the Emergency Department. See MAR. Independent interpretation of the following test(s) in the Emergency Department CT Scan: My interpretation is No bowel obstruction seen on my interpretation of CT scan images. Test considered but Not performed: Ultrasound Suspected cholecystitis is clinically unlikely, no secondary signs of cholecystitis on CT scan, LFTs, bilirubin normal. Do not believe ultrasound is indicated at this time.. Counseling: I had a detailed discussion with the patient and/or guardian regarding the historical points, exam findings, and any diagnostic results supporting the discharge/admit diagnosis, lab results, radiology results, the need for outpatient follow up, to return to the emergency department if symptoms worsen or persist or if there are any questions or concerns that arise at home. Response to treatment: the patient's symptoms have markedly improved after treatment. 12/10 99: Order name: CBC with Diff; Complete Time: :33 rt 12/10 99:44 Order name: CMP; Complete Time: : rt 12/10 99:44 Order name: Lipase; Complete Time: : rt 12/10 99: Order name: Urinalysis w/ reflexes; Complete Time: 02:58 rt 12/10 99:44 Order name: CT Abd/Pelvis - IV Contrast Only rt 12/09 Order name: IV Saline Lock; Complete Time: 00:54 rt 12/09 Order name: Labs collected and sent; Complete Time: 00:54 rt Administered Medications: 00:54 Drug: NS 0.9% IV 1000 ml IV at 1 bolus Per protocol; 1000 mL bolus Route: IV; Rate: 1 lg3 bolus; Site: right antecubital; 02:51 Follow up: Response: No adverse reaction; IV Status: Completed infusion; IV Intake: lg3 1000ml 00:54 Drug: Famotidine IVP 20 mg IVP once; dilute with 10 mL 0.9% NaCl; give over 2 minutes lg3 Route: IVP; Site: right antecubital; 02:51 Follow up: Response: No adverse reaction; Marked relief of symptoms lg3 00:54 Drug: Ondansetron IVP 4 mg IVP once; over 2 minutes Route: IVP; Site: right antecubital;lg3 02:51 Follow up: Response: No adverse reaction; Marked relief of symptoms; Nausea is decreasedlg3 00:54 Drug: morphine IVP or IV 4 mg IVP once over 4 mins Route: IVP; Infused Over: 4 mins; lg3 Site: right antecubital; 02:51 Follow up: Response: No adverse reaction; Marked relief of symptoms; Pain is decreased lg3 00:54 Drug: Alum-Mag Hydroxide-Simeth PO Suspension (200 mg-200 mg-20 mg/5 mL) 30 ml PO once lg3 Route: PO; 02:51 Follow up: Response: No adverse reaction; Marked relief of symptoms lg3 Disposition Summary: 12/10/23 03:01 Discharge Ordered Notes: Location: Home rt Problem: new rt Symptoms: have improved rt Condition: Stable rt Diagnosis - Acute gastritis without bleeding rt Followup: rt - With: Private Physician - When: 2 - 3 days - Reason: Discharge Instructions: - Discharge Summary Sheet rt - Gastritis, Adult rt Forms: - Medication Reconciliation Form rt - Antibiotic Education rt - Prescription Opioid Use rt - Patient Portal Instructions rt - Leadership Thank You Letter rt Prescriptions: - Protonix 40 mg Oral Tablet - take 1 tablet ORAL route once daily; 30 tablet; Refills: 0, Product Selection rt Permitted - dicyclomine 10 mg Oral capsule - take 1 capsule ORAL route every 8 hours as needed for abdominal pain; 15 rt capsule; Refills: 0, Product Selection Permitted Signatures: Dispatcher [employer] Asha Guerrero, RN RN lg3 Laith Cook MD MD rt Anamaria Mohan RN RN pf1 Corrections: (The following items were deleted from the chart) 00:44 00:44 Abdomen Pelvis W Con+CT.[id number].[id number] ordered. EDMS EDMS
--- NOTE | 2023-12-10 03:02 | ER ---
Nurse's Notes [facility] Name: Kan Berkowitz Age: 28 yrs Sex: Male : 1995 Arrival Date: 12/10/2023 Time: 00:34 Bed 5 Private MD: Diagnosis: Acute gastritis without bleeding Presentation: 12/09 00:39 Chief complaint: Patient states: upper abdominal pain of 9 with nausea, onset yesterday.pf1 00:39 Coronavirus screen: Vaccine status: Patient reports being unvaccinated. Client denies pf1 travel out of the [place] in the last 14 days. At this time, the client does not indicate any symptoms associated with coronavirus-19. Ebola Screen: Patient negative for fever greater than or equal to 101.5 degrees Fahrenheit, and additional compatible Ebola Virus Disease symptoms. Initial Sepsis Screen: Does the patient meet any 2 criteria? No. Patient's initial sepsis screen is negative. Does the patient have a suspected source of infection? No. Patient's initial sepsis screen is negative. Risk Assessment: Do you want to hurt yourself or someone else? Patient reports no desire to harm self or others. Onset of symptoms was December 08, 2023. 00:39 Method Of Arrival: Ambulatory pf1 00:39 Acuity: CHRISTOPHER 3 pf1 Triage Assessment: 00:40 General: Appears in no apparent distress. comfortable, well groomed, well developed, pf1 Behavior is calm, cooperative, appropriate for age, quiet. Pain: Complains of pain in abdomen Pain currently is 9 out of 10 on a pain scale. Pain began yesterday. GI: Abdomen is flat, non-distended, Reports upper abdominal pain, nausea. Historical: - Allergies: 00:51 No Known Allergies; pf1 - PMHx: 00:51 Kidney stones; Bipolar disorder; pf1 00:52 ADHD; pf1 - PSHx: 00:51 Right wrist sx; pf1 - Immunization history:: Adult Immunizations not up to date, Client reports having NOT received the Covid vaccine. Last tetanus immunization: > 10 years ago Flu vaccine is not up to date. - Infectious Disease History:: Denies. - Family history:: not pertinent. - Social history:: Smoking status: Patient reports the use of cigarette tobacco products, smokes one pack cigarettes per day. Patient/guardian denies using alcohol, street drugs. Screenin:51 [facility] ED Fall Risk Assessment (Adult) History of falling in the last 3 months, pf1 including since admission No falls in past 3 months (0 pts) Confusion or Disorientation No (0 pts) Intoxicated or Sedated No (0 pts) Impaired Gait No (0 pts) Mobility Assist Device Used No (0 pt) Altered Elimination No (0 pt) Score/Fall Risk Level 0 - 2 = Low Risk Oriented to surroundings, Maintained a safe environment, Educated pt \T\ family on fall prevention, incl call for assistance when getting out of bed, Assessed \T\ reinforced patient's understanding of fall precautions, Provided non-skid footwear, Hourly rounding (assess needs \T\ fall precautionary measures) done, Used ambulatory aids as needed (educated on \T\ assisted with), Used gait belt as appropriate. Abuse screen: Denies threats or abuse. Nutritional screening: No deficits noted. Tuberculosis screening: No symptoms or risk factors identified. Assessment: 00:52 General: Appears in no apparent distress. uncomfortable, Behavior is calm, cooperative. lg3 Pain: Complains of pain in epigastric area, right upper quadrant and left upper quadrant Pain does not radiate. Pain currently is 9 out of 10 on a pain scale. Also complains of decreased appetite, nausea. Neuro: No deficits noted. Yates Agitation-Sedation Scale (RASS): 0 - Alert and Calm Level of Consciousness is awake, alert, obeys commands, Oriented to person, place, time, situation. Cardiovascular: No deficits noted. Denies chest pain, shortness of breath, Heart tones S1 S2 present Capillary refill < 3 seconds Clubbing of nail beds is absent JVD is absent Patient's skin is warm and dry. Respiratory: No deficits noted. Airway is patent Respiratory effort is even, unlabored, Respiratory pattern is regular, symmetrical, Breath sounds are clear bilaterally. GI: Abdomen is round non-distended, Bowel sounds present X 4 quads. Abd is soft X 4 quads Abdomen is tender to palpation in right upper quadrant and left upper quadrant Reports upper abdominal pain, epigastric pain, nausea. : No deficits noted. No signs and/or symptoms were reported regarding the genitourinary system. EENT: No deficits noted. No signs and/or symptoms were reported regarding the EENT system. Derm: No deficits noted. No signs and/or symptoms reported regarding the dermatologic system. Skin is intact, is healthy with good turgor, Skin is dry, Skin is normal, Skin temperature is warm. Musculoskeletal: No deficits noted. No signs and/or symptoms reported regarding the musculoskeletal system. Circulation, motion, and sensation intact. Range of motion: intact in all extremities. 02:51 Reassessment: Patient appears in no apparent distress at this time. Patient and/or lg3 family updated on plan of care and expected duration. Pain level reassessed. Patient is alert, oriented x 3, equal unlabored respirations, skin warm/dry/pink. Patient states feeling better. Vital Signs: 00:39 BP 146 / 83; Pulse 73; Resp 16; Temp 97.1; Pulse Ox 100% on R/A; Weight 99.79 kg; pf1 Height 6 ft. 0 in. ; Pain 9/10; 02:52 BP 136 / 87; Pulse 62; Resp 16 S; Temp 97.8(O); Pulse Ox 100% on R/A; lg3 00:39 Body Mass Index 29.84 (99.79 kg, 182.88 cm) pf1 00:39 Pain Scale: Adult pf1 ED Course: 00:36 Patient arrived in ED. mr 00:38 Laith Cook MD is Attending Physician. rt 00:45 Triage completed. pf1 00:51 Arm band placed on right wrist. pf1 00:52 Asha Powers RN is Primary Nurse. lg3 00:52 Patient has correct armband on for positive identification. Placed in gown. Bed in low lg3 position. Call light in reach. Side rails up X 1. Client placed on continuous cardiac and pulse oximetry monitoring. NIBP monitoring applied. Door closed. Noise minimized. Warm blanket given. Family accompanied patient. 00:52 Initial lab(s) drawn, by me, sent to lab. Inserted saline lock: 20 gauge in right lg3 antecubital area, using aseptic technique. Blood collected. 00:54 CBC with Diff Sent. lg3 00:54 CMP Sent. lg3 00:54 Lipase Sent. lg3 01:53 CT Abd/Pelvis - IV Contrast Only In Process Unspecified. EDMS 03:05 No provider procedures requiring assistance completed. IV discontinued, intact, lg3 bleeding controlled, No redness/swelling at site. Pressure dressing applied. Administered Medications: 00:54 Drug: NS 0.9% IV 1000 ml IV at 1 bolus Per protocol; 1000 mL bolus Route: IV; Rate: 1 lg3 bolus; Site: right antecubital; 02:51 Follow up: Response: No adverse reaction; IV Status: Completed infusion; IV Intake: lg3 1000ml 00:54 Drug: Famotidine IVP 20 mg IVP once; dilute with 10 mL 0.9% NaCl; give over 2 minutes lg3 Route: IVP; Site: right antecubital; 02:51 Follow up: Response: No adverse reaction; Marked relief of symptoms lg3 00:54 Drug: Ondansetron IVP 4 mg IVP once; over 2 minutes Route: IVP; Site: right antecubital;lg3 02:51 Follow up: Response: No adverse reaction; Marked relief of symptoms; Nausea is decreasedlg3 00:54 Drug: morphine IVP or IV 4 mg IVP once over 4 mins Route: IVP; Infused Over: 4 mins; lg3 Site: right antecubital; 02:51 Follow up: Response: No adverse reaction; Marked relief of symptoms; Pain is decreased lg3 00:54 Drug: Alum-Mag Hydroxide-Simeth PO Suspension (200 mg-200 mg-20 mg/5 mL) 30 ml PO once lg3 Route: PO; 02:51 Follow up: Response: No adverse reaction; Marked relief of symptoms lg3 Medication: 03:05 VIS not applicable for this client. lg3 Intake: 02:51 IV: 1000ml; Total: 1000ml. lg3 Outcome: 03:01 Discharge ordered by . rt 03:05 Discharged to home ambulatory, with significant other, lg3 03:05 Condition: stable 03:05 Discharge instructions given to patient, Instructed on discharge instructions, follow up and referral plans. medication usage, Demonstrated understanding of instructions, follow-up care, medications, Prescriptions given X 2, 03:05 Patient left the ED. lg3 Signatures: Dispatcher [employer] EDMS Joelle Rubin, Asha Smith, RN RN lg3 Laith Cook MD MD rt Anamaria Mohan RN RN pf1 Corrections: (The following items were deleted from the chart) 00:51 00:50 Triage completed. pf1 pf1 03:05 02:52 BP 136 / 87; Pulse 62bpm; Resp 16bpm; Spontaneous; Pulse Ox 100% RA; lg3 lg3
[2023-12-10 03:23] VITALS: BP 136/87; TEMP 97.8; O2SAT 100
--- NOTE | 2023-12-10 15:17 | RAD REPORT ---
EXAM DESCRIPTION: CT - Abdomen Pelvis W Contrast - 12/10/2023 6:53 am CLINICAL HISTORY: ABD PAIN COMPARISON: 01/24/2023 TECHNIQUE: CT of the abdomen and pelvis performed following the administration of IV contrast. No or al contrast. This exam was performed according to our departmental dose-optimization program, which i ncludes automated exposure control, adjustment of the mA and/or kV according to patient size and/or u se of iterative reconstruction technique. FINDINGS: Lung Bases: The visualized lung bases are clear. Abdomen: Liver: The liver has normal contour and density. No suspicious mass. Gallbladder: No calcified gallstones. No significant biliary dilatation. Spleen, Pancreas, and Adrenal Glands: The spleen, pancreas, and adrenal glands are unremarkable. Kidneys: No suspicious mass. No urinary tract calculi. No hydronephrosis. Vasculature: The aorta and IVC have normal caliber and position. The portal vein is patent. The pro ximal visceral and renal arteries are patent. Stomach: The stomach and duodenum have normal course. Other: No free intraperitoneal air. No free fluid or lymphadenopathy. Pelvis: Bladder: Urinary bladder is unremarkable. Bowel: No dilated loops of large or small bowel. No acute inflammatory process. Appendix: Normal appendix. Pelvis: No suspicious mass. Bones: No destructive bone lesions identified. IMPRESSION: No acute abnormality on CT of the abdomen and pelvis. Electronically signed by: Halima Velásquez MD 12/10/2023 02:02 AM CDT Due to temporary technical issues with the PACS/Fluency reporting system, reports are being signed by the in house radiologists without review as a courtesy to insure prompt reporting. The interpreting radiologist is fully responsible for the content of the report.
== END 2023-12-10 03:05 | disposition home or self-care (01) ==
LOC: ER 00:34
DX: K29.00 Acute gastritis without bleeding (principal)
CPT/HCPCS: 36415; 74177; 80053; 81001; 83690; 85025; 96361; 96374; 96375; 99284; J2405; J7030; Q9967